=== PATIENT | female | born 1965 | race Caucasian/White ===

== ENCOUNTER 2019-11-15 15:16 | Emergency (ER) | payer OTHER ==
[~2019-11-15] VITALS: Ht 162.6 cm; Wt 72.6 kg
[2019-11-15] MEDS ORDERED: TENORMIN25 MG PO (15:47)
== END 2019-11-15 20:38 | disposition home or self-care (01) ==
LOC: ER 15:16
DX: A09 Infectious gastroenteritis and colitis, unspecified (principal); Z20.828 Contact with and (suspected) exposure to other viral communicable diseases

== ENCOUNTER 2019-11-17 07:41 | Emergency (ER) | payer OTHER ==
[~2019-11-17] VITALS: Ht 162.6 cm; Wt 72.6 kg
[~2019-11-17 07:41] MED LIST: TENORMIN25 MG PO
== END 2019-11-17 17:13 | disposition home or self-care (01) ==
LOC: ER 07:41
DX: R19.7 Diarrhea, unspecified (principal); A09 Infectious gastroenteritis and colitis, unspecified; Z20.828 Contact with and (suspected) exposure to other viral communicable diseases

== ENCOUNTER 2022-09-19 17:27 | Emergency (ER) | payer OTHER ==
[~2022-09-19] VITALS: Ht 160 cm; Wt 64.9 kg
== END 2022-09-19 21:15 | disposition home or self-care (01) ==
LOC: ER 17:27
DX: J10.1 Influenza due to other identified influenza virus with other respiratory manifestations (principal); R50.9 Fever, unspecified; M54.2 Cervicalgia

== ENCOUNTER 2024-02-26 06:46 | Emergency (ER) | payer OTHER ==
[~2024-02-26] VITALS: Ht 160 cm; Wt 70.3 kg
[2024-02-26 07:10] VITALS: BP 120/76; O2SAT 96
[2024-02-26] MEDS ORDERED: ACETAMINOPHEN 500 MG GEL..CAP PO ONE (08:30)
[2024-02-26] MEDS ORDERED: GUAIFENESIN/DEXTROMETHORPHAN 10ML BLIST.PACK PO ONE (08:30)
[2024-02-26 09:03] LABS: HEMATOCRIT 43.2 % (36.0-45.00); HEMOGLOBIN 14.9 g/dL (12.0-15.00); MEAN CELL VOLUME 90.1 fL (80.00-100.00); MEAN CORPUSCULAR HGB CONC 34.4 g/dl (32.0-36.0); PLATELET COUNT 203 K/uL (150-450); RED CELL DISTRIBUTION WIDTH 14.4 % (11.5-14.5)
[2024-02-26] MEDS ORDERED: ZITHROMAX500 MG PO (10:20)
[2024-02-26] MEDS ORDERED: TUSNEL LIQUID178 ML PO (10:20)
== END 2024-02-26 10:34 | disposition home or self-care (01) ==
LOC: ER 06:48
PROVIDERS: General Practice
DX: B34.9 Viral infection, unspecified (principal); Z91.013 Allergy to seafood; I10 Essential (primary) hypertension; Z20.822 Contact with and (suspected) exposure to COVID-19